=== PATIENT | female | born 1960 | race Caucasian/White ===

== ENCOUNTER → 2017-06-03 | Outpatient (CLI) | payer OTHER ==
[~2017-06-03] MED LIST: PRT/20 PO; ZNTT/150 PO
[2017-06-03 18:17] LABS: PLATELET COUNT 229 K/uL (130-400)
== END | disposition home or self-care (01) ==
LOC: C.LABBFT 15:07
PROVIDERS: ATTEND Orthopaedic Surgery
DX: Z01.812 Encounter for preprocedural laboratory examination (principal)

== ENCOUNTER 2017-06-27 08:48 | Inpatient (IN) | payer OTHER ==
[2017-06-02 13:37] VITALS: Ht 157.5 cm; Wt 106.5 kg
--- NOTE | 2017-06-02 14:07 | PAT Medication Instructions ---
Service Date Jun 02, 2017. Current Home Medication List Pantoprazole (Protonix), 20 MG PO QAM Ranitidine (Zantac), 150 MG PO BID Medication Instructions For Your Scheduled Surgery - Take the following medications the morning of surgery with a sip of water: Pantoprazole (Protonix), 20 MG PO QAM Ranitidine (Zantac), 150 MG PO BID - Take the following medications as scheduled the night before surgery: Ranitidine (Zantac), 150 MG PO BID If you have any questions please call us at [phone] or [phone] or [phone]
--- NOTE | 2017-06-02 15:02 | DIAGNOSTIC IMAGING REPORT ---
CHEST 2 VIEWS ROUTINE HISTORY: 56 years-old Female pat Acute left shoulder pain. COMPARISON: Chest radiograph 11/01/2015 TECHNIQUE: 2 views of the chest FINDINGS: There is moderate enlargement of the cardiac silhouette. Lateral view is limited secondary to position of the patient's arms. No pneumothorax, pleural effusion, focal airspace consolidation or overt pulmonary edema. Sigmoidal scoliosis of the thoracolumbar spine is noted. There are cholecystectomy clips in the right upper abdomen. Right shoulder arthroplasty noted. There are degenerative changes of the left shoulder and spine. IMPRESSION: No acute cardiopulmonary process. The above report was generated using voice recognition software. It may contain grammatical, syntax or spelling errors. Electronically signed by: Lalo Richards M.D. 06/02/2017 3:01 PM Dictated Date/Time: 06/02/2017 2:59 PM
[2017-06-02 15:13] LABS: MANUAL MICROSCOPIC REQUIRED? NO; REVIEW REQ? NO; URINE APPEARANCE CLEAR (CLEAR); URINE BILIRUBIN NEG (NEG); URINE COLOR YELLOW; URINE EPITHELIAL CELL AUTO >30 /lpf (0-5); URINE NITRITE NEG (NEG); UROBILINOGEN NEG (NEG)
[2017-06-02 15:14] LABS: BUN/CREATININE RATIO 7.2 (10-20); CALCIUM 8.7 mg/dl (8.5-10.1); CREATININE 0.82 mg/dl (0.60-1.20); POTASSIUM 3.6 mmol/L (3.5-5.1)
[2017-06-02 15:15] LABS: PROTHROMBIN TIME (PATIENT) 10.7 SECONDS (9.0-12.0)
[2017-06-02 16:25] LABS: HEMATOCRIT 43.3 % (37-47); MEAN CELL VOLUME 84.9 fL (80-100); MEAN CORPUSCULAR HEMOGLOBIN 27.6 pg (25-34); MEAN CORPUSCULAR HGB CONC 32.6 g/dl (32-36); WHITE BLOOD COUNT 8.48 K/uL (4.8-10.8)
[2017-06-02 16:27] LABS: BASO % 0.2 %; BASO ABS # 0.02 K/uL (0-0.2); COMPLETE YES; EOS % 1.2 %; IG% 0.1 %; LYMPH % 37.5 %; LYMPH ABS # 3.18 K/uL (1.2-3.4); MONO % 6.6 %; NEUT % 54.4 %
[2017-06-03 07:25] LABS: ESTIMATED AVERAGE GLUCOSE 108 mg/dl; HA1C FLAG Normal (Normal)
--- NOTE | 2017-06-23 19:06 | History and Physical ---
History & Physical Date Jun 23, 2017. Chief Complaint Left shoulder pain History of Present Illness The patient is a 56 year old female with complaints of left shoulder pain for several years. She has failed conservative therapy and would like to proceed with scheduled surgery of Left TSA verse reverse TSA. Past Medical/Surgical History Medical Problems: (1) Arthritis (2) ESOPHAGEAL REFLUX Additional History Hepatic Disease: No Endocrine Disorder: No Kidney Disease: No Hypertension: No Heart Disease: No Bleeding Tendencies: No Infectious Diseases: No Allergies Coded Allergies: Naproxen (Verified Adverse Reaction, Unknown, Fluid retention., 06/02/17) Home Medications Scheduled Pantoprazole (Protonix), 20 MG PO QAM Ranitidine (Zantac), 150 MG PO BID Physical Examination Skin: warm/dry, no rash Eyes: normal inspection, EOMI ENT: normal ENT inspection Head: normocephalic, atraumatic Neck: supple, no adenopathy Respiratory/Chest: lungs clear, normal breath sounds Cardiovascular: regular rate, rhythm, no murmur Abdomen / GI: normal bowel sounds, non tender Extremities: normal inspection, normal range of motion, + pertinent finding ( flexion to 45 abduction to 30 and external rotation to 15 with diffuse tenderness) Neurologic/Psych: no motor/sensory deficits, alert, oriented x 3 Diagnosis Left shoulder osteoarthritis Plan of Treatment Patient is scheduled for a left shoulder TSA verse a reverse TSA. She has failed conservative therapy and would like to proceed with scheduled surgery. Risks and benefits were discussed with the patient. She understands the risks and wishes to proceed. All questions were answered. She will go home with OPPT.
[~2017-06-27] VITALS: Ht 157.5 cm; Wt 106.5 kg
[2017-06-27] VITALS (9 sets, daily range): BP systolic 103–172; BP diastolic 61–92; PULSE 68–96; TEMP 36.2–36.9; O2SAT 88–98
[2017-06-27] MEDS: TRANEXAMIC ACID INJ 1,000 MG in SYRINGE 0 ML IV SCH ×2 (06:30→09:46)
[~2017-06-27 08:48] MED LIST changes: +ACETAMINOPHEN 500 MG TAB PO SCH; +CEFAZOLIN 2000MG IV PUSH 10 ML IV SCH; +CeleBREX 200 MG CAP PO SCH; +DEXAMETHASONE 4 MG TAB PO SCH; +DEXAMETHASONE SOD INJ 4 MG/ML VIAL ONE; +FAMOTIDINE 20 MG TAB PO SCH; +FENTANYL CITRATE INJ 50 MCG/1 ML 2 ML VIAL ONE; +GABAPENTIN 300 MG CAP PO SCH; +GLYCOPYRROLATE INJ 0.2 MG/ML VIAL ONE; +LACTATED RINGER'S 1000ML 1,000 ML IV SCH; +LIDOCAINE HCL 2% 2 ML VIAL (20MG/ML) ONE; +METOCLOPRAMIDE HCL 10 MG TAB PO SCH; +MIDAZOLAM HCL 1 MG/ML 2ML VIAL ONE; +NEOSTIGMINE METHYLSULFATE 5 MG/5 ML SYR ONE; +ONDANSETRON INJ 2 MG/ML 2 ML VIAL ONE; +PROPOFOL IV EMULSION 10 MG/ML 20 ML VIAL IV ONE; +ROPIVACAINE 0.5% 5 MG/ML 30 ML VIAL ONE; +ROPIVACAINE 5MG/ML 30 ML 150 MG, BUPIVACAINE 0.5% MPF INJ 30 ML, EpINEphrine HCL INJ 0.... INFIL SCH
--- NOTE | 2017-06-27 09:10 | History & Physical Bridge Note ---
H&P Re-Evaluation Bridge Note: I have examined the patient, reviewed the History & Physical and in the interval since the performance of the History & Physical I have noted the following changes of clinical significance: No changes noted
[2017-06-27] MEDS ORDERED: ONDANSETRON INJ 2 MG/ML 2 ML VIAL IV PRN ×2 (09:15→14:30)
[2017-06-27] MEDS ORDERED: ATROPINE SULFATE 0.1 MG/ML 5ML SYR IV PRN (09:15)
[2017-06-27] MEDS ORDERED: EpHEDrine SULFATE INJ 50 MG/ML AMP IV PRN (09:15)
[2017-06-27] MEDS ORDERED: FENTANYL CITRATE INJ 50 MCG/1 ML 2 ML VIAL IV PRN (09:15)
[2017-06-27] MEDS ORDERED: THROMBIN FOR SOLN 20000 UNIT KIT ONE ×2 (09:29→09:32)
[2017-06-27] MEDS ORDERED: ORTHO JOINT ANESTHETIC ONE ×2 (09:29→09:32)
[2017-06-27] MEDS ORDERED: POVIDONE-IODINE OP SOLN 30 ML BTL ONE ×2 (09:29→09:32)
[2017-06-27] MEDS ORDERED: VANCOMYCIN HCL 1000MG/20ML VIAL ONE ×2 (09:30→09:33)
[2017-06-27] MEDS ORDERED: BACITRACIN 50000 UNIT VIAL ONE ×2 (09:30→09:33)
[2017-06-27] MEDS ORDERED: PHENYLEPHRINE HCL INJ 10 MG/ML VIAL ONE (11:57)
[2017-06-27] MEDS ORDERED: WATER, STERILE FOR INJ 10 ML VIAL ONE (11:57)
[2017-06-27] MEDS ORDERED: LARYING-O-JET KIT (LTA) ONE ×2 (11:57)
[2017-06-27] MEDS ORDERED: EpHEDrine SULFATE 50MG/5ML SYR ONE (11:57)
[2017-06-27] MEDS ORDERED: PHENYLEPHRINE 100MCG/ML 5ML SYR ONE (11:57)
[2017-06-27] MEDS ORDERED: GLYCOPYRROLATE INJ 0.2 MG/ML VIAL ONE (13:34)
[2017-06-27] MEDS ORDERED: ONDANSETRON INJ 2 MG/ML 2 ML VIAL ONE ×2 (13:34→14:51)
--- NOTE | 2017-06-27 14:07 | [facility] Operative Report ---
Operative Report Operative Date Jun 27, 2017. Pre-Operative Diagnosis Left Should Osteoarthritis Post-Operative Diagnosis Left Shoulder Osteoarthritis, plus biceps tendon tear Procedure(s) Performed TOTAL LEFT SHOULDER ARTHROPLASTY, plus biceps tenodesis Surgeon Dr. Moreno Procurement Technician Surgeon(s) Prasad Howard PA-C Estimated Blood Loss 100ml Findings asa above Specimens A: Left humeral head Drains 1 hemovac Anesthesia geta, interscalene Complication(s) None Disposition Recovery Room / PACU Indications 66-year-old female long-standing degenerative joint disease left shoulder. She has failed conservative measures including intra-articular cortisone injection anti-inflammatories and physical therapy. She is [id number] glenohumeral joint with inferior osteophyte formation of both the humeral head and glenoid. Failing conservative measures she wished to proceed with a total shoulder arthroplasty. Given the rounding seen on her humeral x-ray as concerned that she may have a chronic rotator cuff. Description of Procedure Risks, benefits and alternatives to surgery including, but not limited to, infection DVT, pain, stiffness, need for revision surgery, failure to relieve all symptoms, damage to blood vessels, damage to nerves, risk of anesthesia were discussed with the patient and they wished to proceed. The patient was identified. Laterality was confirmed and marked. The patient received a preoperative antibiotic as well as an interscalene block. They were transferred to the operating room and placed in the supine position and induced into general endotracheal anesthesia per the anesthesia staff. The patient was then safely transferred to a slight beachchair position. The patient was secured in the Tenet positioner. All pressure points were well padded. The shoulder was prepped and draped in the usual sterile manner with ChloraPrep. The arm was secured in the Spider bragg. I made a longitudinal incision just lateral to the coracoid, sharply incising through the skin and utilizing Bovie electrocautery to achieve hemostasis. I identified the cephalic vein and mobilized it laterally with the deltoid. I mobilize the pectoralis and mobilize this medially releasing a small portion of the upper border of the pec tendon to improve visualization. I then identified and mobilized the conjoined tendon. I identified the long head of the biceps tendon. The long head of the biceps tendon had significant tendinosis and tearing proximally. I performed an in situ biceps tenodesis with interrupted #2 FiberWire suture. I then released the subscapularis with a peel technique. Ethibond sutures were tagged into the subscapularis for later repair. I pinned into place my humeral head version cutting guide and made my humeral head resection. I then sequentially reamed and sequentially broached. I then placed the trial humeral stem into the shoulder. I placed retractors around the glenoid and then excised the residual biceps tendon stump and glenoid labrum. I elevated the soft tissues and the inferior aspect of the glenoid to improve exposure and released tissues circumferentially. I then positioned and drilled for the central post for the glenoid. I then reamed. The glenoid was sized off of the reamer. I then drilled for the 3 peripheral peg holes. I then placed the trial glenoid into position to confirm the appropriate size. The wound was thoroughly irrigated. The peg holes were dried with thrombin soaked sponges. The central post for the caged glenoid was bone grafted with bone taken from the humeral head. The peripheral peg holes were cemented with Palacos G cement. I then impacted the definitive glenoid component into position. I then removed the trial humeral stem . I placed 3 #2 FiberWire sutures through drill holes that were looped around the stem. I then placed the definitive humeral stem. I trialed off of the definitive stem. The definitive components used were [employer] Equinox: Humeral press-fit stem: 13 Caged glenoid: Medium alpha Replicator plate: 4.5 millimeter Humeral head: 38 mm x 16 mm short I thoroughly irrigated the wound. Deep tissues were anesthetized with an orthomix solution. I then locked my replicator plate into position with a torque limiting screw. I then impacted the definitive humeral head into position. I then reduced the shoulder. There was good range of motion and good stability after the reduction. The subscapularis was repaired with the #2 FiberWire sutures in a horizontal mattress fashion medially. A lateral row was repair was performed with a running #5 FiberWire suture. The rotator interval was closed with interrupted #2 FiberWire suture. The wound was again thoroughly irrigated and a Betadine soak was performed. A deep drain was placed. The deltopectoral interval was closed with interrupted #1 Ethibond suture. The subcutaneous tissue was closed with interrupted 2-0 Vicryl suture. The skin was closed with ava. A sterile dressing was applied. A sling was placed. All needle and sponge counts were correct at the end of the procedure. The patient was transferred to the PACU in stable condition without apparent complication. The PA-C was necessary for assistance with procedure for assistance in positioning, prepping, draping, retraction and closure. I attest to the content of the Intraoperative Record and any orders documented therein. Any exceptions are noted below.
[2017-06-27] MEDS ORDERED: ZOLPIDEM TARTRATE 5 MG TAB PO PRN (14:30)
[2017-06-27] MEDS ORDERED: ALUMINUM/MAGNESIUM SUSP 30 ML UDC PO PRN (14:30)
[2017-06-27] MEDS ORDERED: MAGNESIUM HYDROXIDE SUSP 30 ML UDC PO PRN (14:30)
[2017-06-27] MEDS ORDERED: SOD PHOSPHATE/SOD BIPHOSPHATE ENEMA 132 ML BTL PR PRN (14:30)
[2017-06-27] MEDS ORDERED: BISACODYL 10 MG SUPP PR PRN (14:30)
--- NOTE | 2017-06-27 14:53 | DIAGNOSTIC IMAGING REPORT ---
L SHOULDER MIN 2 VIEWS ROUTINE HISTORY: 56 years-old Female Post shoulder surgery status post left shoulder surgery degenerative joint disease. COMPARISON: Chest radiograph 06/02/2017 TECHNIQUE: 3 views of left shoulder FINDINGS: Postoperative changes from left shoulder arthroplasty noted. Alignment is satisfactory. No periprosthetic fracture or retained foreign body. Mild degenerative changes of the left AC joint. Expected postsurgical soft tissue swelling and deep tissue air with surgical drain in place. Suggested left pleural effusion with left basilar opacities. IMPRESSION: Status post left shoulder arthroplasty without complication. The above report was generated using voice recognition software. It may contain grammatical, syntax or spelling errors. Electronically signed by: Lalo Richards M.D. 06/27/2017 2:52 PM Dictated Date/Time: 06/27/2017 2:51 PM
--- NOTE | 2017-06-27 15:54 | Anesthesiology Progress Note ---
Anesthesia Post Op Note Date & Time Jun 27, 2017 at 15:54 Vital Signs Pain Intensity: 0 Vital Signs Past 12 Hours Date Time Temp Pulse Resp B/P (MAP) Pulse Ox O2 Delivery O2 Flow Rate FiO2 06/27/17 15:15 90 18 108/64 97 Oxymask 3 06/27/17 15:05 36.4 98 18 118/67 96 Oxymask 3 06/27/17 14:55 84 18 123/70 94 Oxymask 3 06/27/17 14:45 96 18 115/46 95 Oxymask 5 06/27/17 14:35 36.3 85 18 126/70 95 Oxymask 10 06/27/17 14:28 36.3 101 20 119/60 95 Oxymask 10 06/27/17 09:48 36.8 68 20 172/92 97 Room Air Notes Mental Status: alert / awake / arousable, participated in evaluation Pt Amnestic to Procedure: Yes Nausea / Vomiting: adequately controlled Pain: adequately controlled Airway Patency, RR, SpO2: stable & adequate BP & HR: stable & adequate Hydration State: stable & adequate Anesthetic Complications: no major complications apparent
[2017-06-27] MEDS: POTASSIUM CHLORIDE INJ 10 MEQ in SODIUM CHLORIDE 0.9% 1000ML 1,000 ML IV SCH (17:04)
[2017-06-27] MEDS ORDERED: ROCURONIUM BROMIDE 10 MG/ML 5 ML VIAL IV ONE (17:25)
[2017-06-27] MEDS: FERROUS GLUCONATE 324 MG TAB PO SCH (17:45)
[2017-06-27] MEDS: CEFAZOLIN IV 2,000 MG in SYRINGE 0 ML IV SCH (19:22)
[2017-06-27] MEDS ORDERED: PROMETHAZINE HCL INJ 12.5 MG in SODIUM CHLORIDE 0.9% 50ML 50 ML IV PRN (19:45)
[2017-06-27] MEDS: RANITIDINE HCL 150 MG TAB PO SCH (20:27)
[2017-06-27] MEDS: DOCUSATE SODIUM 100 MG CAP PO SCH (20:27)
[2017-06-27] MEDS ORDERED: SENNA 8.6 MG TAB PO SCH (21:00)
[2017-06-27] MEDS: ACETAMINOPHEN 500 MG TAB PO SCH (21:36)
[2017-06-28] MEDS: POTASSIUM CHLORIDE INJ 10 MEQ in SODIUM CHLORIDE 0.9% 1000ML 1,000 ML IV SCH ×2 (02:56→12:25)
[2017-06-28] MEDS: CEFAZOLIN IV 2,000 MG in SYRINGE 0 ML IV SCH (02:57)
[2017-06-28 03:35] VITALS: BP 113/69; PULSE 74; TEMP 36.7; O2SAT 96
[2017-06-28] MEDS: ACETAMINOPHEN 500 MG TAB PO SCH ×2 (05:41→13:31)
[2017-06-28 05:53] VITALS: PULSE 73; O2SAT 93
[2017-06-28 06:05] LABS: HEMATOCRIT 33.7 % (37-47); MEAN CELL VOLUME 85.8 fL (80-100); MEAN CORPUSCULAR HEMOGLOBIN 28.2 pg (25-34); MEAN CORPUSCULAR HGB CONC 32.9 g/dl (32-36); MEAN PLATELET VOLUME 11.4 fL (7.4-10.4); PLATELET COUNT 177 K/uL (130-400); RED BLOOD COUNT 3.93 M/uL (4.2-5.4); WHITE BLOOD COUNT 13.84 K/uL (4.8-10.8)
[2017-06-28 06:21] LABS: PROTHROMBIN TIME (PATIENT) 10.5 SECONDS (9.0-12.0)
[2017-06-28 06:37] LABS: BUN/CREATININE RATIO 13.3 (10-20); CALCIUM 8.3 mg/dl (8.5-10.1); CREATININE 0.77 mg/dl (0.60-1.20); POTASSIUM 4.4 mmol/L (3.5-5.1)
[2017-06-28 07:42] VITALS: BP 109/72; PULSE 70; TEMP 36.6; O2SAT 94
[2017-06-28] MEDS: DOCUSATE SODIUM 100 MG CAP PO SCH (08:32)
[2017-06-28] MEDS: RANITIDINE HCL 150 MG TAB PO SCH (08:32)
[2017-06-28] MEDS: FERROUS GLUCONATE 324 MG TAB PO SCH ×2 (08:33→12:25)
--- NOTE | 2017-06-28 08:43 | Orthopedic Progress Note ---
Orthopedic Progress Note Date of Service Jun 28, 2017. Subjective Post OP Day: 1 Reports: feeling well, Denies: complaints Objective dressing C/D/I, A&O x3, CMS intact, hemovac drainage Date Time Temp Pulse Resp B/P (MAP) Pulse Ox O2 Delivery O2 Flow Rate FiO2 06/28/17 07:42 36.6 70 16 109/72 (84) 94 Room Air 06/28/17 05:53 73 93 Room Air 06/28/17 03:35 36.7 74 16 113/69 (84) 96 Nasal Cannula 2.0 06/27/17 23:45 Nasal Cannula 2.0 06/27/17 22:58 95 Nasal Cannula 2.0 06/27/17 22:55 36.6 86 18 108/71 (83) 88 Room Air 06/27/17 19:45 36.4 88 16 122/61 (81) 92 Room Air 06/27/17 18:37 36.2 85 18 117/74 (88) 96 Nasal Cannula 2.0 06/27/17 17:26 36.2 93 18 117/74 (88) 98 Nasal Cannula 2.0 06/27/17 16:43 36.2 96 18 120/72 (88) 98 Nasal Cannula 2.0 06/27/17 16:08 36.3 80 18 116/76 (89) 95 Nasal Cannula 2.0 06/27/17 15:30 90 Nasal Cannula 2.0 06/27/17 15:30 36.9 88 16 103/69 (80) 90 Nasal Cannula 2.0 06/27/17 15:30 90 Nasal Cannula 2.0 06/27/17 15:15 90 18 108/64 97 Oxymask 3 06/27/17 15:05 36.4 98 18 118/67 96 Oxymask 3 06/27/17 14:55 84 18 123/70 94 Oxymask 3 06/27/17 14:45 96 18 115/46 95 Oxymask 5 06/27/17 14:35 36.3 85 18 126/70 95 Oxymask 10 06/27/17 14:28 36.3 101 20 119/60 95 Oxymask 10 06/27/17 09:48 36.8 68 20 172/92 97 Room Air Laboratory Results 24 Hours: Test 06/28/17 05:44 Hematocrit 33.7 % Hemoglobin 11.1 g/dL Prothromb Time International Ratio 1.0 Prothrombin Time 10.5 SECONDS Assessment & Plan Assessment: POD 1 s/p Left TSA Plan: PT/OT Planning for dc to home today Inhouse Planning Pain Management: PO Tylenol, Oxy IR DVT Prophylaxis: TEDs, SCDs, ASA Discharge Planning Discharge Planning: home with oppt Pain Management: PO Tylenol, Oxy IR DVT Prophylaxis: ASA Therapy: Physical Therapy
[2017-06-28] MEDS ORDERED: MULTIVITAMIN TAB PO SCH (09:00)
[2017-06-28] MEDS ORDERED: PANTOprazole SOD 40 MG TAB PO SCH (09:00)
[2017-06-28] MEDS ORDERED: ACET-24 PO (09:45)
[2017-06-28] MEDS ORDERED: RXC5 PO (09:45)
--- NOTE | 2017-06-28 09:51 | Discharge Instructions ---
Discharge Instructions Date of Service Jun 28, 2017. Admission Reason for Admission: Left Shoulder Osteoarthritis Discharge Discharge Diagnosis / Problem: Left Shoulder Djd Discharge Goals Goal(s): Decrease discomfort, Improve function, Increase independence Activity Recommendations Activity Limitations: per Instructions/Follow-up section . Instructions / Follow-Up Instructions / Follow-Up ACTIVITY RECOMMENDATIONS: SELF CARE INSTRUCTIONS AFTER TOTAL SHOULDER ARTHROPLASTY A. You may do daily exercises as taught in physical therapy while in hospital. No lifting with the operative arm. Please schedule your outpatient physical therapy appointment to begin within 2-3 days after leaving the hospital. Specific restrictions will be written on your physical therapy prescription that is provided to you. B. You are to wear your sling/immobilizer at all times EXCEPT when performing your daily exercises, participating in physical therapy and for hygiene purposes. C. You may perform dry, daily dressing changes. Please keep your incision covered. You may shower 48 hours after surgery. Do not apply soap or any ointment/ lotions directly over incision. Do not soak incision in bath tub/swimming pool. D. You may use ice as needed to operative shoulder. SPECIAL CARE INSTRUCTIONS: MEDICATION INSTRUCTIONS: *It is recommended you take Aspirin 81mg daily for four weeks post-op. VERY IMPORTANT TO READ AND REVIEW A. There are a few signs you need to watch for after you are home. Call [facility] at [phone] if you experience any of the followin. Increased severe shoulder pain. Some pain is expected especially when you exercise. 2. Increased swelling in you shoulder or arm; pain or swelling in either upper extremity. 3. Any fluid drainage from the incision. 4. Shortness of breath or chest pain. B. Please call [facility] at [phone] if you have any questions or concerns about your operation or recovery. C. Call your physician if: 1. Temperature is greater than 101 degrees (F). 2. Pain is not relieved by prescribed pain medications. 3. Increase drainage or redness from incision. 4. Unanswered questions or concerns. FOLLOW UP VISIT: Please call [facility] at [phone] to schedule a follow up appointment with Dr. Moreno or his PA in 12-14 days from your surgery date. Current Hospital Diet Patient's current hospital diet: Regular Diet Discharge Diet Recommended Diet: Regular Diet Procedures Procedures Performed: TOTAL LEFT SHOULDER ARTHROPLASTY, plus biceps tenodesis Pending Studies Studies pending at discharge: no Laboratory Results Hemoglobin A1c Test 06/02/17 14:39 Range/Units Estimated Average Glucose 108 mg/dl Hemoglobin A1c 5.4 4.5-5.6 % Medical Emergencies . Who to Call and When: Medical Emergencies: If at any time you feel your situation is an emergency, please call 911 immediately. . Non-Emergent Contact Non-Emergency issues call your: Surgeon Call Non-Emergent contact if: temperature is above 101.5, your pain is not controlled, your pain is worsening, wound has increased drainage, wound has increased redness . "Provider Documentation" section prepared by Patrice Larry. . VTE Core Measure Inpt VTE Proph given/why not?: Other Anticoagulation, T.E.D. Stockings, SCD's [place] Drug Monitoring Program Search Results: patient reviewed within database, no issues identified
[2017-06-28 10:20] VITALS: BP 109/72; PULSE 70; TEMP 36.6; O2SAT 94
[2017-06-28] MEDS ORDERED: OXYSR10 PO (10:35)
[2017-06-28] MEDS: OXYCODONE HCL IR 5 MG TAB (IMMEDIATE RELEASE) PO PRN ×2 (11:20→11:57)
[2017-06-28 11:25] VITALS: BP 114/71; PULSE 73; TEMP 36.7; O2SAT 97
--- NOTE | 2017-07-08 16:35 | Discharge Summary ---
Orthopedic Discharge Summary Admission Date/Reason Jun 27, 2017 at 09:45 Left Shoulder Osteoarthritis. Discharge Date/Disposition Jun 28, 2017 Home with services Diagnosis Principal Diagnosis: S/P Left total shoulder arthroplasty. Medication Reconciliation as per discharge instructions Admission Physical Exam As per Admitting History & Physical. Hospital Course POD#1 patient was feeling well with her pain under control. She was scheduled to do some PT later that day and to be discharged. She tolerated her hospital stay well. Discharge Instructions Please refer to the electronic Patient Visit Report (Discharge Instructions) for additional information.
== END 2017-06-28 14:15 | disposition home or self-care (01) | DRG 483 ==
LOC: C.ACU 08:48 → C.3E 09:45 → ENRESERV 15:06
PROVIDERS: ADMIT Orthopaedic Surgery; ATTEND Orthopaedic Surgery
PROC: 0LQ40ZZ Repair Left Upper Arm Tendon, Open Approach (ICD-10-PCS; principal; 2017-06-27 11:15)
PROC: 0RRK0JZ Replacement of Left Shoulder Joint with Synthetic Substitute, Open Approach (ICD-10-PCS; principal; 2017-06-27 11:15)
DX: M19.012 Primary osteoarthritis, left shoulder (principal); S46.212A Strain of muscle, fascia and tendon of other parts of biceps, left arm, initial encounter; K21.9 Gastro-esophageal reflux disease without esophagitis; Z79.899 Other long term (current) drug therapy; X58.XXXA Exposure to other specified factors, initial encounter